=== PATIENT | male | born 1960 | race Caucasian/White ===

== ENCOUNTER → 2020-09-28 | Day surgery (SDC) | payer BC ==
[~2020-09-28] MED LIST: Acetaminophen/oxyCODONE 325-5 MG Tab PO PRN; Albuterol 0.083% 2.5 MG/3 ML Neb Soln NEB SCH; Albuterol/Ipratropium 3.0-0.5 MG/3 ML Neb Soln NEB SCH; Albuterol/Ipratropium 3.0-0.5 MG/3 ML Neb Soln ONE; Bupivacaine 0.5% 30 ML SDV ONE; Bupivacaine 0.5%/EPINEPHrine 1:200,000 50 ML MDV ONE; HYDROmorphone 0.5 MG/0.5 ML Syringe IVPUSH PRN; Lactated Ringers 1,000 ML IV SCH; Lactated Ringers 1,000 ML ONE; Lidocaine 1% 4 ML ONE; Lidocaine 1%/Sod Bicarbonate in NS 8.4% 1 ML Syringe IDERM PRN; Midazolam 1 MG/ML 2 ML SDV ONE; Ondansetron 4 MG/2 ML SDV IVPUSH PRN; Ondansetron 4 MG/2 ML SDV ONE; Propofol 200 MG/20 ML SDV ONE; Rocuronium 50 MG/5 ML Vial ONE; Sodium Chloride 0.9% 10 ML Syringe FLUSH PRN; ceFAZolin 1 GM Vial ONE; ePHEDrine 50 MG/ML SDV ONE; fentaNYL 100 MCG/2 ML SDV IVPUSH PRN; fentaNYL 250 MCG/5 ML SDV ONE
--- NOTE | 2020-09-28 08:04 | PCM.PREANE ---
Preanesthetic Assessment - Procedure Proposed Procedure: left inguinal hernia repair with mesh - Anesthesia/Transfusion/Family Hx Anesthesia History: Prior Anesthesia Without Reaction Family History of Anesthesia Reaction: No Transfusion History: No Prior Transfusion(s) - Review of Systems General: No Symptoms Pulmonary: No Symptoms Cardiovascular: No Symptoms, Dyspnea on Exertion Gastrointestinal: No Symptoms Neurological: No Symptoms Other: Reports: None - Physical Assessment NPO Status Date: 09/27/20 NPO Status Time: 20:00 (sip with pills this am) Vital Signs: 61 20 91% 140/85 97.6 Height: 6 ft Weight: 85.3 kg ASA Class: 3 Mental Status: Alert & Oriented x3 Airway Class: Mallampati = 1 Dentition: Reports: Dentures Thyro-Mental Finger Breadths: 3 Mouth Opening Finger Breadths: 3 ROM/Head Extension: Full Lungs: Clear to Auscultation, Normal Respiratory Effort, Decreased Breath Sounds Cardiovascular: Regular Rate, Regular Rhythm - Allergies Allergies/Adverse Reactions: Allergies Allergy/AdvReac Type Severity Reaction Status Date / Time Penicillins Allergy Cannot Verified 09/27/20 13:56 Remember - Blood Blood Available: No - Acknowledgements Anesthesia Type Planned: Spinal Pt an Appropriate Candidate for the Planned Anesthesia: Yes Alternatives and Risks of Anesthesia Discussed w Pt/Guardian: Yes Pt/Guardian Understands and Agrees with Anesthesia Plan: Yes PreAnesthesia Questionnaire HEENT History: Reports: Sinusitis, Other (See Below) Other HEENT History: wears dentures, has glasses Cardiovascular History: Reports: Hypertension Respiratory History: Reports: COPD (fev1 50%), Other (See Below) Other Respiratory History: cough Gastrointestinal History: Reports: None Genitourinary History: Reports: Other (See Below) Other Genitourinary History: erectile dysfunction 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 Musculoskeletal History: Reports: None Neurological History: Reports: None Psychiatric History: Reports: None Endocrine/Metabolic History: Reports: None Hematologic History: Reports: None Immunologic History: Reports: None Oncologic (Cancer) History: Reports: None Dermatologic History: Reports: Other (See Below) Other Dermatologic History: skin biopsies, lipoma excsion - Past Surgical History Head Surgeries/Procedures: Reports: None HEENT Surgical History: Reports: None Cardiovascular Surgical History: Reports: None Respiratory Surgical History: Reports: None GI Surgical History: Reports: EGD Female Surgical History: Reports: None Male Surgical History: Reports: None Endocrine Surgical History: Reports: None Neurological Surgical History: Reports: None Musculoskeletal Surgical History: Reports: Other (See Below) Other Musculoskeletal Surgeries/Procedures:: right shoulder surgery Oncologic Surgical History: Reports: None Dermatological Surgical History: Reports: None - SUBSTANCE USE Tobacco Use Status *Q: Current Every Day Tobacco User Tobacco Use Within Last Twelve Months: Cigarettes Second Hand Smoke Exposure: Yes Days Per Week of Alcohol Use: 0 Recreational Drug Use History: No - HOME MEDS Home Medications: Home Meds ALPRAZolam [Xanax] 1 mg PO TID 09/27/20 [History] Budesonide/Glycopyr/Formoterol [Breztri Aerosphere Inhaler] 2 puff INH BID 09/27/20 [History] Losartan [Cozaar] 100 mg PO DAILY 09/27/20 [History] Roflumilast [Daliresp] 500 mcg PO DAILY 09/27/20 [History] Tiotropium BR/Olodaterol HCL [Stiolto Respimat] 2 puff INH DAILY 09/27/20 [History] busPIRone [Buspar] 10 mg PO BID 09/27/20 [History] - CURRENT (IN HOUSE) MEDS Current Meds: Current Medications Albuterol (Proventil Neb Soln) 2.5 mg NEB ONETIME MADELAINE Stop: 09/28/20 18:00 Lactated Ringer's (Ringers, Lactated) 1,000 mls @ 125 mls/hr IV ASDIRECTED MADELAINE Stop: 09/28/20 23:00 Lidocaine/Sodium Bicarbonate (Buffered Lidocaine 1% In Ns 8.4%) 0.25 ml IDERM ONETIME PRN PRN Reason: Prior to IV Start Stop: 09/28/20 18:00 Sodium Chloride (Saline Flush) 10 ml FLUSH ASDIRECTED PRN PRN Reason: Keep Vein Open Stop: 09/28/20 18:00 Discontinued Medications Albuterol (Proventil Neb Soln) 2.5 mg NEB ONETIME MADLEAINE Stop: 09/28/20 18:00 Fentanyl (Sublimaze) Confirm Administered Dose 250 mcg .ROUTE .STK-MED ONE Stop: 09/28/20 07:09 Lidocaine HCl (Xylocaine-Mpf 1%) Confirm Administered Dose 4 mls @ as directed .ROUTE .STK-MED ONE Stop: 09/28/20 07:09 Midazolam HCl (Versed 1 Mg/Ml) Confirm Administered Dose 2 mg .ROUTE .STK-MED ONE Stop: 09/28/20 07:09 Ondansetron HCl (Zofran) Confirm Administered Dose 4 mg .ROUTE .STK-MED ONE Stop: 09/28/20 07:09 Propofol (Diprivan 20 Ml) Confirm Administered Dose 200 mg .ROUTE .STK-MED ONE Stop: 09/28/20 07:09 Rocuronium [place] (Zemuron) Confirm Administered Dose 50 mg .ROUTE .STK-MED ONE Stop: 09/28/20 07:09
--- NOTE | 2020-09-28 11:58 | PCM.POSTAN ---
POST ANESTHESIA ASSESSMENT - MENTAL STATUS Mental Status: Alert, Oriented - VITAL SIGNS Vital Signs: Last Vital Signs Temp 97.6 F 09/28/20 08:27 Pulse 61 09/28/20 08:27 Resp 20 09/28/20 08:27 BP 140/85 09/28/20 08:27 Pulse Ox 91 L 09/28/20 08:27 1154 95% 119/74 64 20 97.2 - RESPIRATORY Respiratory Status: Respiratory Rate WNL, Airway Patent, O2 Saturation Stable, Supplemental Oxygen - CARDIOVASCULAR CV Status: Pulse Rate WNL, Blood Pressure Stable - GASTROINTESTINAL GI Status: No Symptoms - PAIN Pain Score: 0 - POST OP HYDRATION Hydration Status: Adequate & Stable
--- NOTE | 2020-09-28 13:06 | OR ---
DATE OF OPERATION: 09/28/2020 SURGEON: Terra Miller MD PREOPERATIVE DIAGNOSIS: Symptomatic left inguinal hernia, Incarcerated not strangulated POSTOPERATIVE DIAGNOSIS: Symptomatic left inguinal hernia, incarcerated not strangulated. OPERATION PERFORMED: Open left inguinal hernia repair with mesh. ESTIMATED BLOOD LOSS: 10 mL. ANESTHESIA: Monitored anesthesia care. Regional anesthesia with a spinal injection as well as local anesthetic with 0.5% Marcaine with 1:100,000 of epinephrine. COMPLICATIONS: None. Skilled assistance of Shasha Hudson RN was needed in this case. She assisted with patient positioning, preparation of the patient, and retraction of the tissue during the operation. INDICATION AND CONSENT: The patient is a 60-year-old male with [id number] COPD who presented to my clinic with pain in the left inguinal area that has been going on for 2 months. The pain was characteristic of inguinal hernia. There was also a bulge in the left inguinal area above the inguinal ligament which was partially reducible. I discussed with the patient that due to his symptoms and incarceration, I recommend operative repair of the inguinal hernia. 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 Therefore, the decision was made to proceed with an open repair of the left side which is the symptomatic side under sedation and avoid endotracheal intubation. This was discussed with the patient along with the risks, benefits, and alternatives. The patient agreed to proceed with the procedure and informed consent was obtained. DESCRIPTION OF PROCEDURE: The patient was taken to the operating room, placed in supine position, padded appropriately. Monitored anesthesia care was induced. After injection of spinal morphine, the left inguinal area was clipped of any hair and prepped and draped in the usual sterile fashion. The patient received preop antibiotics consisting of Ancef prior to the incision and time-out was performed before beginning the procedure. Began the procedure by injecting 10 mL of local anesthetic in the inguinal area to perform a field block. Then, another 10 mL was injected subcutaneously at the area about 2 fingerbreadths above the inguinal ligament where the incision was planned. Then, a 5 cm incision was made with a scalpel and taken down to the Norris's fascia. Norris's fascia was opened and then the external oblique fascia was encountered. This was opened, taking care not to injure the underlying ilioinguinal nerve. Immediately, we encountered a large lipoma coming through the direct space. This was not reducible. This was released from its attachment around the internal oblique muscle and amputated. The proximal end was put back into the abdomen. The direct defect was about 1.5 cm. This was reapproximated primarily with 2-0 Vicryl stitches. Then, we proceeded with examining the indirect space. The cord structures were isolated and examined. There was a medium-sized cord of lipoma that was isolated, but there was no definite hernia through the indirect space. Once this was done, a mesh was brought into the field. The mesh had a keyhole. This was a medium weight polypropylene mesh, and using 2-0 Prolene stitches, the mesh was secured to the Blake's ligament, leaving a tail of about 1 cm overlap inferiorly. Then, the mesh was placed so that it lies flat reconstructing the inguinal floor. The mesh was secured to the shelving edge with 2-0 Prolene stitches in a running fashion and also to the conjoint tendon with another 2-0 Prolene in a running fashion. At the end, the mesh was lying flat on the inguinal floor and the cord structures were loose around the keyhole. Then, we proceeded with closure of the external oblique aponeurosis which was reapproximated back with 3-0 Vicryl stitches. The Norris's fascia was also reapproximated with 3-0 Vicryl stitches. Deep subcutaneous layer was also reapproximated with 3-0 Vicryl stitches and the skin was reapproximated with 4-0 Monocryl in subcuticular running layer. Then, Dermabond was applied. Additional 30 mL of local anesthetic was infiltrated deep into the internal oblique and then in the subcutaneous tissues. At the end of the procedure, all instrument, sharps, and sponges were counted and found to be correct x2. The patient was awoken from general anesthesia and taken to the recovery area. The patient will be allowed to return home today and will come to clinic in 2 weeks for postop check. MMODAL /[id number] ELINA
--- NOTE | 2020-09-28 13:48 | PCM48HPAN ---
Post Anesthesia Note - EVALUATION WITHIN 48HRS OF ANESTHETIC Vital Signs in Normal Range: Yes Patient Participated in Evaluation: Yes Respiratory Function Stable: Yes Airway Patent: Yes Cardiovascular Function Stable: Yes Hydration Status Stable: Yes Pain Control Satisfactory: Yes Nausea and Vomiting Control Satisfactory: Yes Mental Status Recovered: Yes Vital Signs: Last Vital Signs Temp 97.1 F 09/28/20 13:30 Pulse 61 09/28/20 13:30 Resp 20 09/28/20 13:30 BP 133/86 09/28/20 13:30 Pulse Ox 95 09/28/20 13:30 - COMMENTS/OBSERVATIONS Free Text/Narrative:: Sitting up in bed. No complaints. Feels a little pain, but not bad. Leah
== END | disposition home or self-care (01) ==
LOC: JD.SDS 07:52
PROVIDERS: ATTEND Surgery
DX: K40.90 Unilateral inguinal hernia, without obstruction or gangrene, not specified as recurrent (principal); D17.6 Benign lipomatous neoplasm of spermatic cord; J44.9 Chronic obstructive pulmonary disease, unspecified; I10 Essential (primary) hypertension; F17.210 Nicotine dependence, cigarettes, uncomplicated; N52.9 Male erectile dysfunction, unspecified; Z01.812 Encounter for preprocedural laboratory examination; Z20.822 Contact with and (suspected) exposure to COVID-19; Z88.0 Allergy status to penicillin; Z79.899 Other long term (current) drug therapy; Z98.890 Other specified postprocedural states
CPT/HCPCS: 49505; 93005; 94640; A9270; J0690; J2250; J2370; J2405; J2704; J3010; J3490; J7120; 00830; C1781; J7620-GY